=== PATIENT | female | born 1970 | race Caucasian/White ===

== ENCOUNTER 2018-02-21 08:07 | Inpatient (IN) ==
--- NOTE | 2018-01-30 12:58 | Anesthesiology Consultation ---
Date of Service January 30, 2018 Assessment & Plan (1) Encounter for pre-operative examination: Chart Review Chart Review: Acceptable Risk for Surgery and Patient seen in Pre Admission Testing Teaching & Discussion Pre-Anesthesia Teaching/Discussion Notes: Instructed NPO after midnight before surgery,except medications with 15 cc of water. Medication instructions provided according to the PAT guidelines. History Surgery Operation Date: 02/21/18 07:40 Proposed Procedures p L5-S1 Decompression and Fusion - Scott Cochran, Height/Weight Height: 5 ft 9 in Weight: 108.9 kg Allergies Allergy/AdvReac Type Severity Reaction Status Date / Time No Known Allergies Allergy Verified 01/23/18 11:06 Medications Home Medications Medication Instructions Recorded Confirmed Last Taken diclofenac sodium [Voltaren] 2 g TOPICAL QID PRN 01/23/18 01/23/18 Unknown ibuprofen 800 mg PO TID PRN 01/23/18 01/23/18 Unknown melatonin 5 mg PO HS PRN 01/23/18 01/23/18 Unknown multivitamin 1 cap PO QAM 01/23/18 01/23/18 Unknown tramadol 100 mg PO HS 01/23/18 01/23/18 Unknown Past Medical History Medical History Chronic back pain Degenerative disc disease LUMBAR PAIN, NUMBNESS AND TINGLING WITH PAIN RADIATING DOWN LEFT LEG. WORSE WHEN SITTING OR LAYING DOWN. Diverticular disease H/O SINGLE EPISODE OF DIVERTICULITIS TX WITH ABX. DIET CONTROLLED History of palpitations in adulthood HAD 24 HOUR HOLTER DONE WITHIN PAST 5 YEARS, [facility]. CONCLUDED PVCS/ PACS PER PT. NO FURTHER EVALUATION INDICATED PER PCP. Obesity Past Surgical History Surgical History History of bilateral tubal ligation History of colonoscopy 8 YEARS AGO History of tonsillectomy S/P excision of lipoma STOMACH AND BACK Past Anesthesia History No Hx of Anesthesia Complications History of PONV No Motion Sickness Screening History of Motion Sickness: No Social History Smoking Status: Former smoker tobacco type: cigarettes Do You Dip or Chew Tobacco: No Smoking End Date: 04/09-1PPD X, QUIT 15 YEARS AGO. Hx Alcohol Use: No Hx Substance Use: No substance use type: does not use Exercise / Class Metabolic Activity II 4-5 Yardwork/Stairs/Walk up hill Review of Systems Pt denies any recent chest pain, shortness of breath, fever. +URI/cough/ bronchitis 2 weeks ago, +occasional palpitations. Physical Exam Vital Signs BP: 125/78 P: 86 T: 98.7 SPO2: 97% R: 18 ENMT Mouth: + dentition abnormality (missing several) and + chipped teeth; no loose teeth Thyromental Distance: > or= 3.5 Finger Breadths (3.5) Mallampati Class: I Throat: uvula midline Neck + thick neck; neck extension not limited Respiratory normal respiratory effort, lungs clear to auscultation Cardiovascular RRR, no murmur, no edema Vessels: no carotid bruit Testing Laboratory Results 01/30/18 13:14 01/30/18 13:14 Blood Type A Positive 01/30/18 13:14 Antibody Screen NEGATIVE 01/30/18 13:14 PT 9.6 Seconds (9.0-12.0) 01/30/18 13:14 INR 0.9 (0.9-1.1) 01/30/18 13:14 APTT 24.5 Seconds (21.0-31.0) 01/30/18 13:14 Urine Color Yellow 01/30/18 13:14 Urine Appearance Clear (Clear) 01/30/18 13:14 Urine pH 7.0 (4.5-7.5) 01/30/18 13:14 Ur Specific [place] 1.024 (1.000-1.030) 01/30/18 13:14 Urine Protein Negative (Negative) 01/30/18 13:14 Urine Glucose (UA) Negative (Negative) 01/30/18 13:14 Urine Ketones Negative (Negative) 01/30/18 13:14 Urine Nitrite Negative (Negative) 01/30/18 13:14 Ur Leukocyte Esterase Negative (Negative) 01/30/18 13:14 Electrocardiogram Date: 01/30/18 Findings: + NSR @ (89) Chest X-Ray Date: 01/30/18 Findings: + NAD
--- NOTE | 2018-01-30 13:05 | PAT Medication Instructions ---
Medication Instructions Date of Service January 30, 2018 Home Medications diclofenac sodium [Voltaren] 2 g TOPICAL QID PRN ibuprofen 800 mg PO TID PRN melatonin 5 mg PO HS PRN multivitamin 1 cap PO QAM tramadol 100 mg PO HS Per surgeon's instructions ibuprofen 800 mg PO TID PRN Hold 24 hours prior to surgery diclofenac sodium [Voltaren] 2 g TOPICAL QID PRN Hold the morning of surgery multivitamin 1 cap PO QAM Take evening before surgery melatonin 5 mg PO HS PRN tramadol 100 mg PO HS *NOTHING TO EAT OR DRINK AFTER MIDNIGHT* Other Notes If you have any questions please call us at [phone] or [phone] or [phone] or [phone]
[2018-01-30 13:31] LABS: Basophils # (auto) 0.02 K/uL (0-0.2); Basophils % (auto) 0.3 %; Eosinophils # (auto) 0.11 K/uL (0-0.5); Eosinophils % (auto) 1.4 %; Hematocrit (blood only) 38.4 % (37-47); Hemoglobin 12.9 g/dL (12.0-16.0); Immature Granulocytes # (auto) 0.01 K/uL (0.00-0.02); Immature Granulocytes % (auto) 0.1 %; Lymphocytes % (auto) 27.5 %; Mean Corpuscular Hgb Conc 33.6 g/dL (32-36); Mean Platelet Volume 9.4 fL (7.4-10.4); Monocytes # (auto) 0.62 K/uL (0.11-0.59); Monocytes % (auto) 7.8 %; Neutrophils # (auto) 5.03 K/uL (1.4-6.5); Neutrophils % (auto) 62.9 %; Platelet Count 271 K/uL (130-400); RDW Coefficient of Variation 12.2 % (11.5-14.5); Red Blood Count 4.04 M/uL (4.2-5.4); White Blood Count 7.99 K/uL (4.8-10.8)
[2018-01-30 13:41] LABS: INR 0.9 (0.9-1.1); Partial Thromboplastin Ratio 0.9; Partial Thromboplastin Time 24.5 Seconds (21.0-31.0); Prothrombin Time 9.6 Seconds (9.0-12.0)
[2018-01-30 13:43] LABS: Appearance Urine Clear (Clear); Bilirubin Urine Negative (Negative); Blood Urine Negative (Negative); Color Urine Yellow; Glucose Urine UA Negative (Negative); Ketones Urine Negative (Negative); Leukocyte Esterase Urine Negative (Negative); Nitrite Urine Negative (Negative); Protein Urine Negative (Negative); Specific Gravity Urine 1.024 (1.000-1.030); Urobilinogen Urine Negative (Negative)
--- NOTE | 2018-01-30 13:43 | XRay Report ---
XR chest Pre-admission PA/Lat CLINICAL HISTORY: pat COMPARISON STUDY: No previous studies for comparison. FINDINGS: The bones soft tissues and hemidiaphragms are normal. The cardiomediastinal silhouette is n ormal. The lungs are clear. The pulmonary vasculature is normal. IMPRESSION: Negative chest. The above report was generated using voice recognition software. It may contain grammatical, syntax or spelling errors. Electronically signed by: Barrera Ambriz M.D. 01/30/2018 1:41 PM
[2018-01-30 14:16] LABS: BUN Creatinine Ratio 23.1 (10-20); Calcium 8.4 mg/dl (8.5-10.1); Creatinine Clr Calc Pharmacy 149.9 ml/min; Est GFR (African American) 125.1; Potassium 3.5 mmol/L (3.5-5.1)
[~2018-02-21 08:07] MED LIST: ACETAMINOPHEN 500 MG TAB PO SCH; CEFAZOLIN 2000MG 2,000 MG/15 ML SYR IV SCH; CeleBREX 200 MG CAP PO SCH; GABAPENTIN 300 MG x 3 PO SCH; LR 15ML/HR IV SCH
[2018-02-21] MEDS ORDERED: MIDAZOLAM HCL 1 MG/ML 2ML VIAL ONE (08:42)
[2018-02-21] MEDS ORDERED: fentaNYL citrate 100 MCG/2 ML VIAL ONE ×3 (08:43→11:43)
[2018-02-21] MEDS ORDERED: ONDANSETRON INJ 2 MG/ML 2 ML VIAL IV PRN ×2 (09:21→13:29)
[2018-02-21] MEDS ORDERED: ePHEDrine sulfate 50 MG/ML AMP IV PRN (09:21)
[2018-02-21] MEDS ORDERED: ATROPINE SULFATE 0.1 MG/ML 5ML SYR IV PRN (09:21)
--- NOTE | 2018-02-21 09:28 | History & Physical Bridge Note ---
Date of Service February 21, 2018 History & Physical Bridge Note I have examined the patient, reviewed the History & Physical and in the interval since the performance of the History & Physical I have noted the following changes of clinical significance: no changes noted
--- NOTE | 2018-02-21 09:29 | History & Physical Report ---
Date of Service February 21, 2018 Assessment & Plan (1) Neurogenic claudication due to lumbar spinal stenosis: Lumbar decompression and fusion L5-S1 Present on Admission?: Yes History of Present Illness Chief Complaint: Back and leg pain Primary Care Provider: Zaid Valdovinos This is a 48-year-old female who presents with chronic persistent back and leg pain. After failing extensive course of nonoperative care she is here for surgical intervention. Allergies Allergy/AdvReac Type Severity Reaction Status Date / Time No Known Allergies Allergy Verified 01/23/18 11:06 Home Medications Home Medications Medication Instructions Recorded Confirmed Type diclofenac sodium [Voltaren] 2 g TOPICAL QID PRN 01/23/18 02/21/18 History ibuprofen 800 mg PO TID PRN 01/23/18 02/21/18 History melatonin 5 mg PO HS PRN 01/23/18 02/21/18 History multivitamin 1 cap PO QAM 01/23/18 02/21/18 History tramadol 100 mg PO HS 01/23/18 02/21/18 History Past Med/Surg History Medical History Chronic back pain Degenerative disc disease LUMBAR PAIN, NUMBNESS AND TINGLING WITH PAIN RADIATING DOWN LEFT LEG. WORSE WHEN SITTING OR LAYING DOWN. Diverticular disease H/O SINGLE EPISODE OF DIVERTICULITIS TX WITH ABX. DIET CONTROLLED History of palpitations in adulthood HAD 24 HOUR HOLTER DONE WITHIN PAST 5 YEARS, [facility]. CONCLUDED PVCS/ PACS PER PT. NO FURTHER EVALUATION INDICATED PER PCP. Obesity Surgical History History of bilateral tubal ligation History of colonoscopy 8 YEARS AGO History of tonsillectomy S/P excision of lipoma STOMACH AND BACK Social History Current Living Situation: Spouse Other Information That Helps Us Care for You: No Feels Safe at Home: Yes Safety Concerns: Feels Safe At This Time Smoking Status: Former smoker Tobacco Type: cigarettes Do You Dip or Chew Tobacco: No Smoking End Date: 04/09-1PPD X, QUIT 15 YEARS AGO. Hx Alcohol Use: No Hx Substance Use: No Beliefs That Will Affect Care: None Preferred Language: Thai Communication Ability: Effective Scallop Dredger Required: No Physical Exam 2 Vital Signs (Past 24 Hours): Last Vital Signs Temp 36.9 C 02/21/18 08:43 Pulse 86 02/21/18 08:43 Resp 18 02/21/18 08:43 BP 130/84 02/21/18 08:43 Pulse Ox 96 02/21/18 08:43 Results & Data Medications Administered Acetaminophen (Tylenol) 1,000 mg PO PREOP TR Stop: 02/21/18 18:00 Last Admin: 02/21/18 09:10 Dose: 1,000 mg Celecoxib (Celebrex) 200 mg PO PREOP TR Stop: 02/21/18 18:00 Last Admin: 02/21/18 09:11 Dose: 200 mg Gabapentin (Neurontin) 900 mg PO PREOP TR Stop: 02/21/18 18:00 Last Admin: 02/21/18 09:10 Dose: 900 mg Lactated Ringer's (Lr) 1,000 mls @ 15 mls/hr IV .Q24H TR Stop: 02/22/18 05:59 Last Admin: 02/21/18 09:10 Dose: 15 mls/hr
[2018-02-21] MEDS ORDERED: BUPIVACAINE/EPINEPHRINE 0.5% MPF 1:200,000 30 ML VIAL ONE (09:40)
[2018-02-21] MEDS ORDERED: BACITRACIN INJ 50,000 UNIT VIAL ONE (09:40)
[2018-02-21] MEDS ORDERED: DEXAMETHASONE SOD INJ 4 MG/ML VIAL ONE (10:16)
[2018-02-21] MEDS ORDERED: ONDANSETRON INJ 2 MG/ML 2 ML VIAL ONE (10:16)
[2018-02-21] MEDS ORDERED: PROPOFOL IV EMULSION 10 MG/ML 20 ML VIAL IV ONE (10:16)
[2018-02-21] MEDS ORDERED: LIDOCAINE HCL 2% 2 ML VIAL/AMP(20MG/ML) INFIL ONE (10:16)
[2018-02-21] MEDS ORDERED: ROCURONIUM BROMIDE 10 MG/ML 5 ML VIAL ONE (10:16)
[2018-02-21] MEDS ORDERED: GLYCOPYRROLATE 0.2 MG/ML VIAL ONE (10:35)
[2018-02-21] MEDS ORDERED: NEOSTIGMINE METHYLSULFATE 1 MG/ML 10ML VIAL ONE (10:35)
[2018-02-21] MEDS ORDERED: FLOSEAL HEMOSTATIC MATRIX 10ML TOP ONE (11:23)
--- NOTE | 2018-02-21 11:33 | Fluoroscopy Report ---
LUMBAR SPINE, INTRAOPERATIVE FLUOROSCOPY HISTORY: L5-S1 decompression and fusion. FLUOROSCOPY TIME: 21 seconds. FINDINGS: Intraoperative fluoroscopy was provided for the lumbar spine. 2 fluoroscopic spot images we re obtained. Posterior decompression fusion at L5-S1 with pedicle screws and rods. The hardware appea rs intact. A disc spacer is also noted. IMPRESSION: Fluoroscopy provided for a L5-S1 posterior decompression and fusion. Electronically signed by: Brodie Bush M.D. 02/21/2018 11:32 AM
--- NOTE | 2018-02-21 11:40 | Operative Report ---
Post Operative Report Date of Surgery February 21, 2018 Pre & Post Diagnosis Operation Date: 02/21/18 10:05 Pre-Op Diagnosis: Lumbar Spinal Stenosis Post-Op Diagnosis: Lumbar Spinal Stenosis Procedure Operation Date: 02/21/18 10:05 Actual Procedures #1 lumbar decompression medial facetectomy foraminotomy L5-S1 per #2 posterior spinal fusion L5-S1. #3 placement posterior instrumentation L5-S1 per #4 interbody fusion L5-S1 per #5 2 placement of titanium 10 x 22 mm cage at L5-S1 per #6 placement InFUSE collagen sponge, mass graft and posterior gutters and ostial amp and interbody space. #7 placement of locally harvested morselized autograft in the posterior gutters. Surgeon Scott Cochran, DO Cable Systems Installer None Estimated Blood Loss 150 Findings Consistent with Post-Op Diagnosis Specimens None Description of Procedure Patient was met with briefly case discussed all questions addressed. Able patient was taken back to the operative suite underwent intubation placed in the prone position on the Dung table on top of the [place] frame. All bony prominences well-padded eyes inspected to ensure no external pressure placed upon the. This point the lumbar spine was prepped and draped in a sterile fashion. Sharp dissection with the assistance of Bovie cautery was performed down to and exposing the lamina and transverse of L5 and sacral ala bilaterally. From a caudal to cephalad fashion complete laminectomy of L5 was performed including bilateral medial facetectomies and foraminotomies addressing severe stenosis. Pedicle screws are then placed in L5 and S1 levels bilaterally with the assistance of fluoroscopy and process january placed. Through a transforaminal approach and left complete discectomy was performed endplates created to subcortical bleeding bone and a 10 x 22 mm titanium cage filled with ostium bone graft tapped in position. The rods were then locked into final position bilaterally. The transverse process of L5 and sacral ala burred to subcortical bleeding bone. Infuse collagen sponge master graft local autograft placed in the posterior gutters. 15 round CHIN drain inserted. Incision then closed with 1 Vicryl fascia 2-0 Vicryl subtends a 4 Monocryl fashion closure Steri-Strips sterile dressing placed patient will continue PACU stable condition. I attest to the content of the Intraoperative Record and any orders documented therein. Any exceptions are noted below.
[2018-02-21] MEDS: fentaNYL citrate 100 MCG/2 ML VIAL IV PRN ×4 (11:54→12:15)
[2018-02-21] MEDS: MoRPHine SULFATE 10 MG/ML CARP/VIAL IV PRN ×4 (12:20→12:40)
[2018-02-21] MEDS ORDERED: ONDANSETRON 4 MG TAB PO PRN (13:29)
[2018-02-21] MEDS ORDERED: METOCLOPRAMIDE HCL INJ 5 MG/ML 2 ML VIAL IV PRN (13:29)
[2018-02-21] MEDS ORDERED: ALUMINUM/MAGNESIUM SUSP 30 ML UDC PO PRN (13:29)
[2018-02-21] MEDS ORDERED: NON-FORMULARY MEDICATION (Melatonin [Melatonin] 5 MG) PO PRN (13:29)
[2018-02-21] MEDS ORDERED: FAMOTIDINE 20 MG TAB PO PRN (13:29)
[2018-02-21] MEDS ORDERED: SOD PHOSPHATE/SOD BIPHOSPHATE ENEMA 132 ML BTL PR PRN (13:29)
[2018-02-21] MEDS ORDERED: PROMETHAZINE HCL 12.5 MG in SODIUM CHLORIDE 0.9% 50 ML IV PRN (13:29)
[2018-02-21] MEDS ORDERED: DO NOT ADMINISTER PNEUMOCOCCAL VACCINE PRN (13:29)
[2018-02-21] MEDS ORDERED: HYDROmorphone INJ 0.5 MG/0.5 ML SYR IV PRN (13:29)
[2018-02-21] MEDS ORDERED: ACETAMINOPHEN 500 MG TAB PO PRN (13:29)
[2018-02-21] MEDS ORDERED: ACETAMINOPHEN 1,000 MG/100 ML VIAL IV PRN (13:29)
[2018-02-21] MEDS ORDERED: BISACODYL 10 MG SUPP PR PRN (13:29)
[2018-02-21] MEDS ORDERED: DO NOT ADMINISTER FLU VACCINE PRN (13:29)
[2018-02-21] MEDS ORDERED: KETOROLAC 30 MG/ML VIAL IV SCH (13:29)
[2018-02-21] MEDS ORDERED: LORazepam 0.5 MG/1 ML VIAL IV PRN (13:29)
[2018-02-21] MEDS ORDERED: MAGNESIUM HYDROXIDE SUSP 30 ML UDC PO PRN (13:29)
--- NOTE | 2018-02-21 14:06 | Anesthesiology Progress Note ---
Date of Service February 21, 2018 Anesthesia Post Procedure Vital Signs Vital Signs: Temp Pulse Pulse Resp BP Pulse Ox 02/21/18 13:31 97.9 F 106 H 12 126/86 97 02/21/18 13:05 98.2 F 105 H 14 137/84 99 02/21/18 12:55 98.2 F 89 14 130/83 99 02/21/18 12:45 98.2 F 89 17 125/78 100 02/21/18 12:35 100 H 21 123/93 100 02/21/18 12:25 100 H 16 153/89 H 99 02/21/18 12:15 101 H 22 120/95 98 02/21/18 12:05 103 H 16 127/80 99 02/21/18 11:55 98 H 17 142/97 H 98 02/21/18 11:47 98.4 F 100 H 16 110/74 99 02/21/18 08:43 98.4 F 86 18 130/84 96 Pain Intensity Lower Back: Pain Intensity: 4 Notes Mental Status: alert / awake / arousable and participated in evaluation Patient Amnestic to Procedure: Yes Nausea / Vomiting: adequately controlled Pain: adequately controlled Airway Patency, RR, SpO2: stable & adequate BP & HR: stable & adequate Hydration State: stable & adequate Anesthetic Complications: no major complications apparent and Pt Satisfied with anesthetic care
[2018-02-21] MEDS ORDERED: HYDROmorphone INJ 1 MG/ML SYRINGE ONE (14:14)
[2018-02-21] MEDS: KETOROLAC 30 MG/ML VIAL IV SCH ×2 (16:02→21:56)
[2018-02-21] MEDS: CEFAZOLIN 2000MG 2,000 MG/15 ML SYR IV SCH (18:25)
[2018-02-21] MEDS: OXYCODONE HCL IR 5 MG TAB (IMMEDIATE RELEASE) PO PRN (18:25)
[2018-02-21] MEDS: SODIUM CHLORIDE 0.9% 1000ML 1,000 ML IV SCH (19:04)
[2018-02-21] MEDS ORDERED: Nursing to Pharmacy Communication ONE (20:04)
[2018-02-21] MEDS: DOCUSATE SODIUM/SENNA 50/8.6MG TAB PO SCH (20:10)
[2018-02-21] MEDS: TRAMADOL HCL 50 MG TABLET PO SCH (20:14)
[2018-02-22] MEDS: CEFAZOLIN 2000MG 2,000 MG/15 ML SYR IV SCH (01:49)
[2018-02-22] MEDS: SODIUM CHLORIDE 0.9% 1000ML 1,000 ML IV SCH ×2 (01:49→08:43)
[2018-02-22] MEDS: LORazepam 0.5 MG TAB PO PRN ×2 (01:55→21:19)
[2018-02-22] MEDS: KETOROLAC 30 MG/ML VIAL IV SCH ×2 (04:11→10:17)
[2018-02-22] MEDS: POLYETHYLENE (MIRALAX) 17 GM PACK PO SCH ×3 (05:42→17:40)
[2018-02-22 06:32] LABS: Basophils # (auto) 0.01 K/uL (0-0.2); Basophils % (auto) 0.1 %; Eosinophils # (auto) 0.01 K/uL (0-0.5); Eosinophils % (auto) 0.1 %; Hematocrit (blood only) 34.3 % (37-47); Hemoglobin 11.3 g/dL (12.0-16.0); Immature Granulocytes # (auto) 0.05 K/uL (0.00-0.02); Immature Granulocytes % (auto) 0.3 %; Lymphocytes # (auto) 2.01 K/uL (1.2-3.4); Lymphocytes % (auto) 13.5 %; Mean Corpuscular Hgb Conc 32.9 g/dL (32-36); Mean Corpuscular Volume 96.3 fL (80-100); Mean Platelet Volume 9.3 fL (7.4-10.4); Monocytes # (auto) 1.02 K/uL (0.11-0.59); Monocytes % (auto) 6.9 %; Neutrophils # (auto) 11.76 K/uL (1.4-6.5); Neutrophils % (auto) 79.1 %; Platelet Count 264 K/uL (130-400); RDW Coefficient of Variation 12.4 % (11.5-14.5); RDW Standard Deviation 43.9 fL (36.4-46.3); Red Blood Count 3.56 M/uL (4.2-5.4); White Blood Count 14.86 K/uL (4.8-10.8)
[2018-02-22 07:02] LABS: BUN Creatinine Ratio 21.3 (10-20); Calcium 8.1 mg/dl (8.5-10.1); Creatinine Clr Calc Pharmacy 169.3 ml/min; Est GFR (African American) 130.2; Est GFR (Non-African American) 112.4; Potassium 4.3 mmol/L (3.5-5.1)
[2018-02-22] MEDS: MULTIVITAMIN TAB PO SCH (08:42)
[2018-02-22] MEDS: OXYCODONE HCL IR 5 MG TAB (IMMEDIATE RELEASE) PO PRN ×3 (08:45→18:03)
--- NOTE | 2018-02-22 10:07 | Orthopedic Progress Note ---
Date of Service February 22, 2018 Assessment & Plan (1) Neurogenic claudication due to lumbar spinal stenosis: We will continue physical therapy today advance her bowel regiment. Anticipate possible discharge home tomorrow. Present on Admission?: Yes Subjective Back pain well controlled leg symptoms improved. Physical Exam 2 Vital Signs (Past 24 Hours): Last Vital Signs Temp 36.7 C 02/22/18 07:54 Pulse 72 02/22/18 07:54 Resp 16 02/22/18 07:54 BP 120/80 02/22/18 07:54 Pulse Ox 97 02/22/18 07:54 Physical Exam: Patient is sitting at the bedside. She is good strength testing. Appears comfortable.
[2018-02-22 15:38] VITALS: TEMP 98.2
[2018-02-22] MEDS: DOCUSATE SODIUM/SENNA 50/8.6MG TAB PO SCH (21:17)
[2018-02-22] MEDS: TRAMADOL HCL 50 MG TABLET PO SCH (21:18)
[2018-02-22] MEDS ORDERED: Nursing to Pharmacy Communication ONE (22:52)
[2018-02-23] MEDS: OXYCODONE HCL IR 5 MG TAB (IMMEDIATE RELEASE) PO PRN ×2 (06:36→12:19)
[2018-02-23 07:12] VITALS: BP 113/77; PULSE 86; O2SAT 95
[2018-02-23] MEDS: MULTIVITAMIN TAB PO SCH (08:20)
--- NOTE | 2018-02-23 11:41 | Discharge Summary ---
Date of Service February 23, 2018 Admission HPI Per Admitting Provider This is a 48-year-old female who presents with chronic persistent back and leg pain. After failing extensive course of nonoperative care she is here for surgical intervention. Principal Diagnosis Lumbar spinal stenosis Discharge Data Allergies Allergy/AdvReac Type Severity Reaction Status Date / Time No Known Allergies Allergy Verified 01/23/18 11:06 Consultations 02/21/18 13:29 Consult Case Management - Discharge Planning Routine Procedures Performed Operation Date: 02/21/18 10:05 Actual Procedures p Decompression and Fusion L5-S1 (Not Applicable) - Scott Cochran DO Ordered Studies 02/21/18 10:05 FL fluoroscopy >1hr Routine FL lumbar spine 2-3V Routine Hospital Course (1) Neurogenic claudication due to lumbar spinal stenosis: Patient underwent lumbar decompression fusion tolerated well taken to orthopedic for postoperative. Postop day #1 back pain is controlled leg pain improved progressed appropriately through postop day #2. CHIN drain decreased appropriately. Subsequently discharged home. Discharge orders and instructions can be found the chart for further review. Total Time Total Time Spent Total Time Spent (In Minutes): Not applicable Discharge Plan Discharge Items Patient Disposition: Home - Self-Care Reason For Visit: Spinal Stenosis Discharge Diagnosis: Lumbar spinal stenosis Discharge Goals: Improve function Activity: Per 'Additional Instructions' section Non-emergency contact: Primary Care Provider Call non-emergency contact if: you have any medication questions Follow-up/Referrals: Zaid Valdovinos [Primary Care Provider] - Diet: Regular Addtl Provider Instructions: ACTIVITY RECOMMENDATIONS: SELF CARE INSTRUCTIONS AFTER THORACIC/LUMBAR FUSIONS 1. You may walk to your tolerance. It is good exercise for your legs and back. Expect some back and intermittent leg aches and pains. 2. You may perform "counter-top" level activities (make a sandwich, [place] with a project, etc.). 3. No bending or lifting of more than 10 pounds or back twisting of any nature (roll like a log when turning in bed). 4. You may ride in a car for 20-30 minutes at a time. No driving until after your first visit with your doctor. 5. Frequent changes of position and restricting sitting to 30 minutes at a time will help limit the amount of back spasms and stiffness you may experience. 6. You may discontinue the use of ambulatory aids (cane, crutches, etc.) once your strength and confidence allow. 7. You may point of care technician the shower and let water strike your incision when you arrive home at least once daily. Do not take a tub bath, sit in a hot tub or go into a swimming pool until after your first recheck in the office. SPECIAL CARE INSTRUCTIONS: VERY IMPORTANT TO READ AND REVIEW A. Your surgical incision has been closed with a cosmetic suture under the skin that will dissolve in about 6 weeks. In 14 days, you can use a pair of clean scissors and cut the suture that is left outside of the skin at the ends of your incision. 1. The small skin tapes can be removed 7 days after surgery if they have not fallen off by that point. 2. You may keep the wound open to air as much as possible to promote healing after post-op day number 5 unless told otherwise by your doctor. 3. If you think the wound looks like it is becoming infected (redness or worsening drainage) and/or you are experiencing fever, chill or worsening back pain and muscle spasms, contact the office so that we may evaluate you as soon as possible. B. Complications are uncommon, but please contact us if you have any signs or symptoms of: 1. wound infection (fever higher than 102.5 degrees F, redness, separation of wound, drainage, or increasing pain from the incision) 2. blood clots in legs (pain, swelling, redness and warmth in legs) 3. urinary tract infection (fever higher than 102.5 degrees F, burning upon urination or increased frequency of urination) 4. nerve problems (inability to walk on your toes or heels, numbness, loss of bowel or bladder control) 5. any other symptoms that concern you C. Please call the office at if you have any concerns or questions about your operation or recovery. D. No smoking! Smoking drastically decreases the chance of a solid fusion. E. Do not take any anti-inflammatory medications (Indocin, Advil, Motrin, Aspirin, Naprosyn, etc.) as these may inhibit the chance of a solid fusion. Tylenol is okay to take for pain. MANAGING PAIN AFTER SPINAL SURGERY 1. Narcotic medication is intended for short-term use and will be provided for surgical pain. Surgical pain usually lasts for a period of 4-6 weeks. Narcotic medication includes Percocet, Vicodin, Darvocet, Tylenol #3 or Lortab. 2. Longer-term pain is more appropriately treated with non-narcotic medication such as Tylenol ES. 3. Muscle spasm is not appropriately treated with narcotics. Muscle relaxers such as Soma, Flexeril or Skelaxin can be used along with Tylenol ES. 4. Remember that we all live with some "aches and pains". This is not unusual or uncommon after an injury or as we get older. a. Back pain is expected and may include muscle spasms for 4 to 6 weeks after surgery. The pain should gradually improve. If the pain worsens for no apparent reason, please contact the office. b. Intermittent leg pain may also be experienced and should not be concerned about unless it worsens for no apparent reason. If so, please contact the office. 5. We will provide appropriate medication within the normal guidelines of their prescribed use. We will also be very cautious and aware of potential abuse and extended duration of patients' medication needs. a. Pain medications are for your comfort and to assist with sleep and rest so that the tissue can heal. They are not provided in order to return to normal activity and should not be used through the day. To do so or worsening pain at night can result from ongoing tissue damage and development of tolerance to the prescribed medicine. 6. Please allow 2-3 days to process refills. Prescriptions will not be mailed but must be picked up at the office. FOLLOW UP VISIT: Keep your scheduled follow-up appointment. Any questions, please call the office at . Prescriptions: New oxycodone 5 mg Tablet 5 mg PO Q4H PRN (Reason: Pain) 30 Days Qty: 30 RF: 0 lorazepam 0.5 mg Tablet 0.5 mg PO Q8H 30 Days Qty: 30 RF: 0 Continue multivitamin Capsule 1 cap PO QAM RF: 0 tramadol 100 mg Tablet Extended Release 24 Hr 100 mg PO HS RF: 0 diclofenac sodium [Voltaren] 1 % Gel 2 g TOPICAL QID PRN (Reason: Pain) RF: 0 melatonin 5 mg Tablet 5 mg PO HS PRN (Reason: Insomnia) RF: 0 Discontinued ibuprofen 800 mg Tablet 800 mg PO TID PRN (Reason: Pain) RF: 0 Visit Report Forms: [facility] Discharge Orders: Discharge Order (Routine); Ordered 02/23/18 Ordered By: Scott Cochran Admission Data Admit Date/Time: 02/21/18 11:43 Attending Provider: Scott Cochran Admit Provider: Scott Cochran Primary Care Provider: Zaid Valdovinos Service: Surgical Services
== END 2018-02-23 15:26 | disposition home or self-care (01) | DRG 455 ==
LOC: ASU 08:07 → 3E 11:43